=== PATIENT | male | born 1955 | race Caucasian/White ===

== ENCOUNTER 2025-02-27 12:57 | Day surgery (SDC) | payer MEDICARE, SELFPAY ==
[2025-02-27 13:16] VITALS: BMI 29.8
[2025-02-27 13:20] VITALS: BP 135/93; PULSE 64; RESP 18; TEMP 36.1; O2SAT 96
--- NOTE | 2025-02-27 14:38 | EXP.ANES.CKL ---
[facility] Disclaimer: The information contained in this section may have been updated after the patient was seen, as this information can be updated by other users. Medical History (Updated 02/07/25 @ 11:41 by Sony Neff II, MD) CAD (coronary artery disease) Enlarged prostate Colitis Hypertension Anxiety Hyperlipidemia Vitamin D deficiency Surgical History (Updated 02/07/25 @ 11:35 by Jacqueline Rodriguez MA) History of cholecystectomy Family History (Updated 02/07/25 @ 11:36 by Jacqueline Rodriguez MA) Father Cancer Social History Smoking Status: Never smoker alcohol intake: never substance use type: denies use current occupational status: retired Travel in the last 8 weeks?: None Have you lived/traveled outside [place] in past 30 days?: No Contact w/someone who lives/traveled outside US past 30 days?: No Exposure to someone with infectious disease in past 14 days?: No Do you have a fever (greater than 100.4 F or 38 C)?: No Have you tested positive for COVID-19?: No Exposed to someone with COVID-19 in past 14 days?: No Do you have a sore throat?: No Do you have a cough?: No Do you have any weakness?: No Do you have any diarrhea?: No Are you experiencing any unusual bleeding?: No Do you have any muscle aches/pain?: No Do you have any abdominal pain?: No Are you experiencing loss of taste or smell?: No [facility] Anesthesia Checklist Patient Identification Patient Identification: Arm Band and Family Structural Data Admitted From: Home Planned Operative Procedure/s: EGD and Colonoscopy Consent for Planned Operative Procedure(s) Verified: Yes Verified Documents: Surgical Consent and History and Physical NPO Status Verified Time NPO: 00:00 Additional verifications Patient : No Anesthesia Reactions: No Hx Blood Transfusions: No Blood Transfusion Reaction: No Cephalosporin Allergy: No Previous Colonoscopy: Yes Airway Assessment Mallampati Score:: Class II C-Spine Mobility Assessed: Yes TMJ Mobility Assessed: Yes Dentition: Partials Neurological Assessment Level of Consciousness: Awake, Alert, Appropriate and Follows Commands Hx Seizures: No Numbness or tingling in extremities: No Anesthesia Plan Anesthesia Risk discussed: Yes ASA Class: III Anesthesia Type: MAC Preoperative Comments Pre-Operative Comments: Stents 4 or five. History of Dehydration. Family history of colon cancer.
--- NOTE | 2025-02-27 15:10 | EXP.HP ---
History of Present Illness *Admission Date: 02/27/25 *Reason for visit:: Globus sensation and screening *History of present illness: Mr. Tavarez is a 69-year-old gentleman who is here for GI consultation secondary to globus sensation. The patient did have hiatal hernia repair/Justin fundoplication in 2003 (Jayesh Das MD). He has been on long-term pantoprazole/PPI therapy. He has had this onset of globus sensation with frequent clearance of the throat, hoarseness and some intermittent dysphagia and painful swallowing. He feels as if he cannot get this up or down. He reports no belching but has had some moderate gassiness. He also has had intermittent diarrhea. 5 years ago this was significant and he was seen in the hospital several times and eventually placed on Lomotil. At that time, he was having severe diarrhea with diaphoresis, lightheadedness and syncope. Now, patient has intermittent bouts of less severe diarrhea but significant urgency. He has had cholecystectomy 3 to 4 years ago. He reports no abdominal pain or bloating. He reports no nausea or early satiety. He has had no weight loss. His last colonoscopy was about 10 years ago. He does state that he has had polyps on most prior colonoscopies and he also states that his father had colon cancer at the age of 53. He does state that he was given 10-year surveillance interval at time of last colonoscopy. [facility] Disclaimer: The information contained in this section may have been updated after the patient was seen, as this information can be updated by other users. Medical History (Updated 02/07/25 @ 11:41 by Sony Neff II, MD) CAD (coronary artery disease) Enlarged prostate Colitis Hypertension Anxiety Hyperlipidemia Vitamin D deficiency Surgical History (Updated 02/07/25 @ 11:35 by Jacqueline Rodriguez MA) History of cholecystectomy Family History (Updated 02/07/25 @ 11:36 by Jacqueline Rodriguez MA) Father Cancer Social History Smoking Status: Never smoker alcohol intake: never substance use type: denies use current occupational status: retired Travel in the last 8 weeks?: None Have you lived/traveled outside US in past 30 days?: No Contact w/someone who lives/traveled outside [place] past 30 days?: No Exposure to someone with infectious disease in past 14 days?: No Do you have a fever (greater than 100.4 F or 38 C)?: No Have you tested positive for COVID-19?: No Exposed to someone with COVID-19 in past 14 days?: No Do you have a sore throat?: No Do you have a cough?: No Do you have any weakness?: No Do you have any diarrhea?: No Are you experiencing any unusual bleeding?: No Do you have any muscle aches/pain?: No Do you have any abdominal pain?: No Are you experiencing loss of taste or smell?: No Other Medical History Have you received the Pneumonia Vaccine: Yes Review of Systems Review of Systems Review of systems (narrative): Negative *Cardiovascular Comments: Negative *Gastrointestinal Comments: Negative *Genitourinary Comments: Negative *Musculoskeletal Comments: Negative *Neurologic Comments: Negative Meds Home Medications and Allergies Home Medications ?Medication ?Instructions ?Recorded ?Confirmed ?Type Saccharomyces boulardii 250 mg 250 mg PO BID 02/07/25 02/27/25 History capsule (Digest Probiotic (S.boulardii)) aspirin 81 mg tablet,delayed 81 mg PO DAILY 02/07/25 02/27/25 History release (Adult Low Dose Aspirin) buspirone 10 mg tablet 10 mg PO BID 02/07/25 02/27/25 History carvedilol 3.125 mg tablet 3.125 mg PO BID 02/07/25 02/27/25 History cholecalciferol (vitamin D3) 1,250 1,250 mcg PO WEEKLY 02/07/25 02/27/25 History mcg (50,000 unit) tablet clopidogrel 75 mg tablet 75 mg PO DAILY 02/07/25 02/27/25 History ezetimibe 10 mg tablet 10 mg PO DAILY 02/07/25 02/27/25 History lisinopril 10 mg tablet 10 mg PO DAILY 02/07/25 02/27/25 History pantoprazole 40 mg tablet,delayed 40 mg PO DAILY 02/07/25 02/27/25 History release rosuvastatin 40 mg tablet 40 mg PO DAILY 02/07/25 02/27/25 History tamsulosin 0.4 mg capsule 0.4 mg PO DAILY 02/07/25 02/27/25 History venlafaxine 75 mg tablet 75 mg PO DAILY 02/07/25 02/27/25 History New Prescriptions to Start Prescriptions: Allergies Allergy/AdvReac Type Severity Reaction Status Date / Time fentanyl (From Duragesic) Allergy Rash Verified 02/27/25 13:32 Exam Data for Last 24 hours Vital signs and Labs for Last 24 Hours: Temp Pulse Resp BP Pulse Ox O2 Del Method 97.0 F L 64 18 135/93 H 96 Room Air 02/27/25 13:20 02/27/25 13:20 02/27/25 13:20 02/27/25 13:20 02/27/25 13:20 02/27/25 13:20 I & O for Last 24 hours: Intake & Output 02/24/25 02/25/25 02/26/25 02/27/25 23:59 23:59 23:59 23:59 Weight 220 lb *Routine HEENT Exam Head: Present normocephalic Eye: Present EOMI and PERRL ENT: Present mucous membranes moist *Routine Neck Exam Neck: Present supple *Routine Respiratory Exam Respiratory: Present CTA bilaterally *Routine Cardiovascular Exam Cardiovascular: Present RRR *Routine Abdominal Exam Abdominal: Present soft and normoactive bowel sounds; Absent tenderness *Routine Rectal Exam Rectal:: deferred *Routine Genitalia Exam Genitalia:: deferred *Routine Extremities Exam Extremities: Absent cyanosis, clubbing or edema *Routine Skin Exam Skin: Present warm; Absent rash *Routine Neurological Exam Neurological: Present alert and oriented X3 Assessment and Plan *Assessment and plan (1) Personal history of colon polyps, unspecified: Status: Acute Category: Medical Code(s): Z86.0100 - Personal history of colon polyps, unspecified (2) Family history of colon cancer in father: Status: Acute Category: Medical Code(s): Z80.0 - Family history of malignant neoplasm of digestive organs (3) Gassiness: Status: Acute Category: Medical Code(s): R14.0 - Abdominal distension (gaseous) (4) Hoarseness: Status: Acute Category: Medical Code(s): R49.0 - Dysphonia (5) Chronic throat clearing: Status: Acute Category: Medical Code(s): R09.89 - Other specified symptoms and signs involving the circulatory and respiratory systems Plan A/P: 1. Personal history of colon polyps and family history of colon cancer for colonoscopy and globus sensation with hoarseness, chronic throat clearance for upper endoscopy is the preprocedural diagnosis. The patient will be anesthetized/sedated using MAC sedation. The patient has been seen and examined. Cardiac and lung assessment prior to the examination is stable. Proceed with planned diagnostic EGD and screening colonoscopy.
--- NOTE | 2025-02-27 15:23 | HMH.PROCNOTE ---
[facility] Procedure Note Date: 02/27/25 Procedure Note:: Upper Endoscopy Procedure Report: Esophagogastroduodenoscopy with cold biopsies and TTS balloon dilation Endoscopost: Sony Neff II, MD Referring Physician: YUAN Hercules Date of Procedure: February 27, 2025 Equipment: Olympus GIF 190 standard upper endoscope Sedation: MAC sedation Indications: Mr. Tavarez is a 69-year-old gentleman who is here for diagnostic upper endoscopy secondary to globus sensation. He is here for colonoscopy secondary to personal history of colon polyps and family history of colon cancer. The patient did have hiatal hernia repair/Justin fundoplication in 2003 (Jayesh Das MD). He has been on long-term pantoprazole/PPI therapy. He has had this onset of globus sensation with frequent clearance of the throat, hoarseness and some intermittent dysphagia and painful swallowing. He feels as if he cannot get this up or down. He reports no belching but has had some moderate gassiness. He also has had intermittent diarrhea. 5 years ago this was significant and he was seen in the hospital several times and eventually placed on Lomotil. At that time, he was having severe diarrhea with diaphoresis, lightheadedness and syncope. Now, patient has intermittent bouts of less severe diarrhea but significant urgency. He has had cholecystectomy 3 to 4 years ago. He reports no abdominal pain or bloating. He reports no nausea or early satiety. He has had no weight loss. His last colonoscopy was about 10 years ago. He does state that he has had polyps on most prior colonoscopies and he also states that his father had colon cancer at the age of 53. He does state that he was given 10-year surveillance interval at time of last colonoscopy. Procedure: Prior to the procedure, a history and physical exam was performed, and patient's medications and allergies were reviewed. The risks, benefits and alternatives of the sedation and procedure were discussed with the patient. All questions were answered and informed consent was obtained. The patient was brought to the procedure room. Patient identification and proposed procedure were verified by the physician and the nurse. The patient was placed in a left lateral decubitus position and the scope was passed under direct vision. Throughout the procedure, the patient's blood pressure, pulse, and oxygen saturations were monitored continuously. The upper GI endoscopy was accomplished without difficulty. The patient tolerated the procedure well. Findings: The scope was passed directly into the upper esophagus and advanced to the fourth portion of duodenum and proximal jejunum. A cold biopsy was taken from the proximal jejunum for disaccharidase assay. The proximal jejunum, post bulbar duodenum, ampulla and duodenal bulb were normal with normal mucosa and conniventes. The scope was withdrawn through a normal duodenal bulb and pylorus into the stomach. There was some mild linear antral reactive gastropathy and cold biopsies were taken from the antrum and lesser curvature. The body and fundus of the stomach were normal. Upon retroflexion there was a recurrent 3 cm hiatal hernia?paraesophageal with evidence of prior fundoplication. The scope was then withdrawn into the esophagus. There was a serrated Z-line with a single tongue of salmon-colored mucosa that was biopsied to rule out intestinal metaplasia. There were no rings, strictures, corrugation or furrowing. There was no proximal esophageal inlet patch. There was evidence of tertiary contractions and moderate esophageal dysmotility. The entire esophagus was dilated to 60 Korean/20 mm with a TTS hydrostatic balloon. There was some resistance at the cricopharyngeus. The remainder of the esophageal mucosa was normal. Impression: 1. Cricopharyngeal spasm status post dilation to 20 mm 2. Nonerosive GERD with moderate esophageal dysmotility and recurrent 3 cm hiatal hernia with evidence of prior fundoplication 3. Linear reactive gastropathy of antrum Plan: I will follow-up the biopsies and discuss the findings with the patient and family. I do feel that his globus and throat clearing is related to functional GERD and cricopharyngeal spasm. We will discuss treatment options. I will proceed with screening colonoscopy.
--- NOTE | 2025-02-27 15:36 | P.PCN_ITS ---
[facility] Procedure Note Date: 02/27/25 Time: 15:47 Procedure Note:: Colonoscopy Procedure Report: Colonoscopy Endoscopist: Sony Neff II, MD Referring physician: YUAN Hercules Date of Procedure: February 27, 2025 Equipment: Olympus 190 variable stiffness pediatric colonoscope Sedation: MAC sedation Indication: Mr. Tavarez is a 69-year-old gentleman who is here for diagnostic upper endoscopy secondary to globus sensation. He is here for colonoscopy secondary to personal history of colon polyps and family history of colon cancer. The patient did have hiatal hernia repair/Justin fundoplication in 2003 (Jayesh Das MD). He has been on long-term pantoprazole/PPI therapy. He has had this onset of globus sensation with frequent clearance of the throat, hoarseness and some intermittent dysphagia and painful swallowing. He feels as if he cannot get this up or down. He reports no belching but has had some moderate gassiness. He also has had intermittent diarrhea. 5 years ago this was significant and he was seen in the hospital several times and eventually placed on Lomotil. At that time, he was having severe diarrhea with diaphoresis, lightheadedness and syncope. Now, patient has intermittent bouts of less severe diarrhea but significant urgency. He has had cholecystectomy 3 to 4 years ago. He reports no abdominal pain or bloating. He reports no nausea or early satiety. He has had no weight loss. His last colonoscopy was about 10 years ago. He does state that he has had polyps on most prior colonoscopies and he also states that his father had colon cancer at the age of 53. He does state that he was given 10-year surveillance interval at time of last colonoscopy. Procedure: Prior to the procedure, a history and physical exam was performed, and patient's medications and allergies were reviewed. The risks, benefits and alternatives of the sedation and procedure were discussed with the patient. All questions were answered and informed consent was obtained. The patient was brought to the procedure room. Patient identification and proposed procedure were verified by the physician and the nurse. The patient was placed in a left lateral decubitus position and the scope was passed under direct vision. Throughout the procedure, the patient's blood pressure, pulse, and oxygen saturations were monitored continuously. The colonoscopy was accomplished without difficulty. The patient tolerated the procedure well. Findings: On digital rectal examination there was normal rectal tone. There were no external hemorrhoids. The colonoscope was introduced through the anal canal to the rectum and advanced to the cecum. The ileocecal valve and appendiceal orifice were identified. The scope was advanced a short distance into the ileum which appeared grossly normal. The scope was then withdrawn into the colon. The cecum, ascending, transverse, descending, sigmoid and rectum were grossly normal. There were no mucosal abnormalities identified. Upon retroflexion within the rectum there were grade 1-2 internal hemorrhoids. The preparation was excellent throughout with [place] Preparation Score of 9. The cecal time was 12 minutes. Impression: 1. Normal colonoscopy with intubation of the terminal ileum Plan: Based upon the patient's family history, I would recommend repeat surveillance colonoscopy again in 5 years. I would encourage psyllium Konsyl fiber supplementation on a long-term daily maintenance basis. The patient does get some gassiness and intermittent diarrhea. He has not completed the fecal elastase testing yet. I would consider a trial of Creon.
[2025-02-27 15:55] VITALS: BP 83/50; PULSE 65; RESP 20; TEMP 36.4; O2SAT 97
[2025-02-27 16:05] VITALS: BP 100/50; PULSE 63; RESP 20; O2SAT 96
[2025-02-27 16:15] VITALS: BP 117/62; PULSE 64; RESP 20; O2SAT 94
[2025-02-27 16:25] VITALS: BP 124/80; PULSE 70; RESP 20; TEMP 36.4; O2SAT 95
[2025-03-03 14:11] LABS: Disclaimer Notes (.); Interpretation Notes (.); Lactase 34.19 (>/= 14.0); Maltase 340.72 (>/= 110.0); Palatinase 21.14 (>/= 8.5); Reference Notes (.); Sucrase 94.06 (>/= 25.0)
== END 2025-02-27 16:36 | disposition home or self-care (01) ==
PROVIDERS: PCP Nurse Practitioner Family; Visit Provider Internal Medicine Gastroenterology
PROC: 0DJ08ZZ Inspection of Upper Intestinal Tract, Via Natural or Artificial Opening Endoscopic (ICD-10-PCS; CPT 45378; principal; 2025-02-27 14:30)
DX: K21.9 Gastro-esophageal reflux disease without esophagitis (principal); K31.9 Disease of stomach and duodenum, unspecified; Z86.0100 Personal history of colon polyps, unspecified; Z80.0 Family history of malignant neoplasm of digestive organs; I25.10 Atherosclerotic heart disease of native coronary artery without angina pectoris; E78.5 Hyperlipidemia, unspecified; I10 Essential (primary) hypertension; Z79.899 Other long term (current) drug therapy
CPT/HCPCS: 43239; 43249; 45378; 82657; C1726; J2003; J2704